=== PATIENT | male | born 1960 | race Caucasian/White ===

== ENCOUNTER 2022-06-22 13:30 | Emergency (ER) | payer MEDICAID ==
[2022-06-22] MEDS ORDERED: Sodium Chloride 0.9% 10 ML Syringe FLUSH PRN (13:43)
[2022-06-22] MEDS ORDERED: Sodium Chloride 0.9% 1,000 ML IV SCH (14:00)
[2022-06-22] MEDS ORDERED: Piperacillin/Tazobactam 4.5 GM in Sodium Chloride 0.9% 100 ML IV ONE (14:57)
[2022-06-22 15:08] LABS: ESTIMATED GFR 11 mL/min (>60)
== END 2022-06-22 15:50 ==
LOC: LB.ED 13:30
DX: I95.0 Idiopathic hypotension (principal); N17.9 Acute kidney failure, unspecified; R57.9 Shock, unspecified; Z79.899 Other long term (current) drug therapy; Z20.822 Contact with and (suspected) exposure to COVID-19
CPT/HCPCS: 36415; 71045; 80053; 83605; 84484; 85025; 87040; 93005; 96361; 96365; 99284; 99285-25; A0425; A0429; J2543; J3490; J7030; U0002

== ENCOUNTER 2023-05-12 09:40 | Emergency (ER) | payer MEDICAID ==
[2023-05-12] MEDS ORDERED: Sodium Chloride 3% 500 ML IV SCH (10:15)
[2023-05-12 11:47] LABS: BASOPHILS ABSOLUTE AUTO 0.04 K/uL (0.02-0.10); BASOPHILS PERCENT AUTO 1.2 % (0.0-0.5); EOSINOPHILS ABSOLUTE AUTO 0.04 K/uL (0.04-0.40); EOSINOPHILS PERCENT AUTO 1.2 % (1.0-5.0); HEMATOCRIT 37.7 % (40.0-54.0); HEMOGLOBIN 14.2 g/dL (13.0-18.0); LYMPHOCYTES ABSOLUTE AUTO 0.62 K/uL (1.50-4.00); LYMPHOCYTES PERCENT AUTO 18.2 % (20.0-40.0); MEAN CORPUSCULAR HEMOGLOBIN 35.9 pg (27.0-32.0); MEAN CORPUSCULAR HGB CONC 37.7 g/dL (31.0-35.0); MEAN CORPUSCULAR VOLUME 95 fL (76-96); MEAN PLATELET VOLUME 9.3 fL (6.0-10.0); MONOCYTES ABSOLUTE AUTO 0.39 K/uL (0.20-0.80); MONOCYTES PERCENT AUTO 11.5 % (3.0-10.0); NEUTROPHILS ABSOLUTE AUTO 2.31 K/uL (2.00-7.50); NEUTROPHILS PERCENT AUTO 67.9 % (45.0-70.0); PLATELET COUNT,PLT 192 K/uL (150-400); RED BLOOD CELL COUNT 3.95 M/uL (4.50-6.50); RED CELL DISTRIBUTION WIDTH 11.2 % (11.0-16.0); WHITE BLOOD CELL COUNT,WBC 3.4 K/uL (4.0-11.0)
[2023-05-12 12:17] LABS: ANION GAP 10.4 mmol/L (5.0-15.0); BUN/CREATININE RATIO 8.7 (6-25); CALCIUM 8.5 mg/dL (8.5-10.1); CARBON DIOXIDE,CO2 30.8 mmol/L (21.0-32.0); CREATININE 1.03 mg/dL (0.70-1.30); EST CRCL DRUG DOSING (CG) 57.25 mL/min; POTASSIUM,K 5.2 mmol/L (3.5-5.1)
[2023-05-12 13:56] LABS: ANION GAP 9.2 mmol/L (5.0-15.0); BUN/CREATININE RATIO 7.2 (6-25); CALCIUM 8.6 mg/dL (8.5-10.1); CARBON DIOXIDE,CO2 31.7 mmol/L (21.0-32.0); CREATININE 1.11 mg/dL (0.70-1.30); EST CRCL DRUG DOSING (CG) 53.12 mL/min; POTASSIUM,K 4.9 mmol/L (3.5-5.1)
== END 2023-05-12 13:36 | disposition home or self-care (01) ==
LOC: LB.ED 09:40
DX: E87.1 Hypo-osmolality and hyponatremia (principal); E87.8 Other disorders of electrolyte and fluid balance, not elsewhere classified; J44.9 Chronic obstructive pulmonary disease, unspecified; Z79.899 Other long term (current) drug therapy
CPT/HCPCS: 36415; 80048; 85025; 96360; 96361; 99283; J7131

== ENCOUNTER 2023-12-29 02:30 | Inpatient (IN) | payer MEDICAID ==
[2023-12-29 11:18] LABS: A/G RATIO 1.1 (0.8-2.0); ALANINE AMINOTRANSFERASE,ALT 13 U/L (12-78); ALBUMIN 3.1 g/dL (3.4-5.0); ALKALINE PHOSPHATASE 63 U/L (46-116); ANION GAP 13.5 mmol/L (5.0-15.0); ASPARTATE AMNIOTRANSFERASE,AST 17 U/L (15-37); BILIRUBIN TOTAL 0.8 mg/dL (0.0-1.0); BLOOD UREA NITROGEN,BUN 19 mg/dL (8-26); CALCIUM 8.6 mg/dL (8.5-10.1); CHLORIDE,CL 93 mmol/L (98-107); CREATININE 1.27 mg/dL (0.70-1.30); ESTIMATED GFR 63 mL/min (>60); GLUCOSE RANDOM 118 mg/dL (74-100); POTASSIUM,K 4.5 mmol/L (3.5-5.1); PROTEIN TOTAL,TP 5.9 g/dL (6.4-8.2); SODIUM,NA 129 mmol/L (136-145)
[2023-12-29 11:23] LABS: LACTIC ACID 1.5 mmol/L (0.4-2.0)
[2023-12-29] MEDS ORDERED: Benzocaine/Butamben/Tetracaine Top Spray 56 GM Canister TOP SCH (11:25)
[2023-12-29 11:26] LABS: MEAN CORPUSCULAR HEMOGLOBIN 40.3 pg (27.0-32.0); MEAN CORPUSCULAR HGB CONC 34.9 g/dL (31.0-35.0); MEAN CORPUSCULAR VOLUME 116 fL (76-96); RED BLOOD CELL COUNT 3.72 M/uL (4.50-6.50); RED CELL DISTRIBUTION WIDTH 12.4 % (11.0-16.0); WHITE BLOOD CELL COUNT,WBC 7.3 K/uL (4.0-11.0)
[2023-12-29 11:27] LABS: LYMPHOCYTES PERCENT AUTO 3.6 % (20.0-40.0); MEAN PLATELET VOLUME 9.9 fL (6.0-10.0); MONOCYTES PERCENT AUTO 3.1 % (3.0-10.0); PLATELET COUNT,PLT 273 K/uL (150-400)
[2023-12-29 11:28] LABS: BASOPHILS ABSOLUTE AUTO 0.02 K/uL (0.02-0.10); BASOPHILS PERCENT AUTO 0.3 % (0.0-0.5); LYMPHOCYTES ABSOLUTE AUTO 0.26 K/uL (1.50-4.00); MONOCYTES ABSOLUTE AUTO 0.23 K/uL (0.20-0.80)
[2023-12-29 11:29] LABS: POTASSIUM,K 4.7 mmol/L (3.5-5.1); SODIUM,NA 127 mmol/L (136-145)
[2023-12-29 11:30] LABS: BLOOD UREA NITROGEN,BUN 15 mg/dL (8-26); BUN/CREATININE RATIO 11.6 (6-25); CARBON DIOXIDE,CO2 25.7 mmol/L (21.0-32.0); CHLORIDE,CL 86 mmol/L (98-107); CREATININE 1.29 mg/dL (0.70-1.30); ESTIMATED GFR 62 mL/min (>60); GLUCOSE RANDOM 198 mg/dL (74-100)
[2023-12-29 11:31] LABS: A/G RATIO 1.2 (0.8-2.0); ALBUMIN 4.1 g/dL (3.4-5.0); BILIRUBIN TOTAL 1.1 mg/dL (0.0-1.0); CALCIUM 9.8 mg/dL (8.5-10.1); MAGNESIUM 1.8 mg/dL (1.8-2.4); PHOSPHORUS 4.8 mg/dL (2.5-4.9); PROTEIN TOTAL,TP 7.6 g/dL (6.4-8.2)
[2023-12-29 11:32] LABS: ALANINE AMINOTRANSFERASE,ALT 20 U/L (12-78); ALKALINE PHOSPHATASE 83 U/L (46-116); ASPARTATE AMNIOTRANSFERASE,AST 22 U/L (15-37); LIPASE 30 U/L (16-77)
[2023-12-29 11:59] LABS: HEMATOCRIT 37.8 % (40.0-54.0); HEMOGLOBIN 13.2 g/dL (13.0-18.0); MEAN CORPUSCULAR HEMOGLOBIN 40.7 pg (27.0-32.0); MEAN CORPUSCULAR HGB CONC 34.9 g/dL (31.0-35.0); RED BLOOD CELL COUNT 3.24 M/uL (4.50-6.50); RED CELL DISTRIBUTION WIDTH 12.2 % (11.0-16.0); WHITE BLOOD CELL COUNT,WBC 6.5 K/uL (4.0-11.0)
[2023-12-29] MEDS ORDERED: NS + KCl 20mEq/L 1,000 ML IV SCH (13:15)
[2023-12-29] MEDS: Albuterol/Ipratropium 3.0-0.5 MG/3 ML Neb Soln NEB SCH (15:09)
[2023-12-29] MEDS ORDERED: Ondansetron 4 MG/2 ML SDV IV PRN (15:56)
[2023-12-29 16:55] LABS: INFLUENZA A NAA NEGATIVE (NEGATIVE); INFLUENZA B NAA NEGATIVE (NEGATIVE); RESPIRATORY SYNCYTIAL VIR NAA NEGATIVE (NEGATIVE)
[2023-12-29 16:57] LABS: CORONAVIRUS COVID-19 NAA NEGATIVE (NEGATIVE)
[2023-12-29] MEDS: Albuterol/Ipratropium 3.0-0.5 MG/3 ML Neb Soln ONE (19:50)
[2023-12-29] MEDS: Albuterol 0.083% 2.5 MG/3 ML Neb Soln NEB SCH (19:50)
[2023-12-29] MEDS: Ketorolac 30 MG/ML SDV ONE (19:50)
[2023-12-29] MEDS: Prochlorperazine 10 MG/2 ML SDV ONE (19:50)
[2023-12-29] MEDS: Benzocaine 20% Oral Spray 59.2 ML Canister MUCMEM ONE (19:51)
[2023-12-29] MEDS ORDERED: [UNRECOGNIZED DRUG - OTHER] PO SCH (20:00)
[2023-12-29] MEDS: HYDROmorphone 2 MG/ML Syringe IV PRN (20:02)
[2023-12-29] MEDS: Lactated Ringers 1,000 ML IV SCH (23:33)
[2023-12-30] MEDS: Albuterol/Ipratropium 3.0-0.5 MG/3 ML Neb Soln ONE (05:56)
[2023-12-30 08:49] LABS: HEMATOCRIT 36.5 % (40.0-54.0); MEAN CORPUSCULAR HEMOGLOBIN 39.7 pg (27.0-32.0); MEAN CORPUSCULAR HGB CONC 32.9 g/dL (31.0-35.0); MEAN PLATELET VOLUME 9.5 fL (6.0-10.0); RED BLOOD CELL COUNT 3.02 M/uL (4.50-6.50); RED CELL DISTRIBUTION WIDTH 12.6 % (11.0-16.0); WHITE BLOOD CELL COUNT,WBC 5.1 K/uL (4.0-11.0)
[2023-12-30 08:51] LABS: ALBUMIN 2.9 g/dL (3.4-5.0); ANION GAP 12.4 mmol/L (5.0-15.0); BILIRUBIN TOTAL 0.8 mg/dL (0.0-1.0); BUN/CREATININE RATIO 16.1 (6-25); CALCIUM 8.6 mg/dL (8.5-10.1); CARBON DIOXIDE,CO2 27.1 mmol/L (21.0-32.0); CREATININE 1.12 mg/dL (0.70-1.30); EST CRCL DRUG DOSING (CG) 49.94 mL/min; POTASSIUM,K 4.5 mmol/L (3.5-5.1); PROTEIN TOTAL,TP 5.8 g/dL (6.4-8.2)
[2023-12-30] MEDS: Labetalol 100 MG/20 ML MDV IVPUSH ONE ×2 (10:08→16:21)
[2023-12-30] MEDS ORDERED: Albuterol 0.083% 2.5 MG/3 ML Neb Soln NEB PRN (10:34)
[2023-12-30] MEDS ORDERED: Albuterol/Ipratropium 3.0-0.5 MG/3 ML Neb Soln NEB PRN (10:35)
[2023-12-30] MEDS ORDERED: Non-Formulary Medication 1 Each (Lisinopril/Hydrochlorothiazide [Lisinopril-Hctz 20-12.5 M PO SCH (10:45)
[2023-12-30] MEDS: Hydrochlorothiazide 12.5 MG Cap PO SCH (11:19)
[2023-12-30] MEDS: Lisinopril 20 MG Tab PO SCH (11:19)
[2023-12-30] MEDS: Pantoprazole 40 MG Vial IVPUSH SCH (11:21)
[2023-12-30] MEDS: HYDROmorphone 2 MG/ML Syringe IV PRN (12:40)
[2023-12-30] MEDS: Bisacodyl 10 MG Supp RECTAL SCH (13:16)
[2023-12-30] MEDS: Sodium Chloride 0.9% 50 ML SDV FLUSH ONE (17:43)
[2023-12-30] MEDS: Iopamidol 612 MG/ML 100 ML Bottle IV SCH (17:43)
[2024-01-04] MEDS ORDERED: [UNRECOGNIZED DRUG - OTHER] PO SCH (08:00)
== END 2023-12-30 19:59 | DRG 389 ==
LOC: LB.ED 02:30 → LB.MS 15:56 → OBSVTOIN 15:56
PROVIDERS: ADMIT Surgery; ATTEND Surgery
PROC: 0D9670Z Drainage of Stomach with Drainage Device, Via Natural or Artificial Opening (ICD-10-PCS; principal; 2023-12-29)
DX: K56.609 Unspecified intestinal obstruction, unspecified as to partial versus complete obstruction (principal); E87.1 Hypo-osmolality and hyponatremia; R18.8 Other ascites; K21.9 Gastro-esophageal reflux disease without esophagitis; J44.9 Chronic obstructive pulmonary disease, unspecified; I10 Essential (primary) hypertension; F32.A Depression, unspecified; E87.8 Other disorders of electrolyte and fluid balance, not elsewhere classified; Z85.118 Personal history of other malignant neoplasm of bronchus and lung; Z90.89 Acquired absence of other organs; Z98.890 Other specified postprocedural states; Z85.038 Personal history of other malignant neoplasm of large intestine; Z79.51 Long term (current) use of inhaled steroids; Z79.899 Other long term (current) drug therapy
CPT/HCPCS: 0241U; 36415; 43752; 74018; 74177; 80053; 83605; 83690; 83735; 84100; 85025; 85027; 87040; 99223; 99239; 99285-25; A0425; A0429; A9270-GY; C9113; J1170; J3490; J7120; J7620; Q9967

== ENCOUNTER 2024-12-11 15:04 | Emergency (ER) | payer MEDICAID ==
[2024-12-11] MEDS: Ondansetron 4 MG/2 ML SDV IVPUSH ONE ×2 (16:00→23:20)
[2024-12-11] MEDS: HYDROmorphone 1 MG/ML Syringe IVPUSH ONE ×2 (16:00→16:25)
[2024-12-11 16:19] LABS: BASOPHILS ABSOLUTE AUTO 0.02 K/uL (0.02-0.10); BASOPHILS PERCENT AUTO 0.2 % (0.0-0.5); EOSINOPHILS ABSOLUTE AUTO 0.02 K/uL (0.04-0.40); EOSINOPHILS PERCENT AUTO 0.2 % (1.0-5.0); LYMPHOCYTES ABSOLUTE AUTO 0.69 K/uL (1.50-4.00); LYMPHOCYTES PERCENT AUTO 7.6 % (20.0-40.0); MEAN CORPUSCULAR HEMOGLOBIN 35.3 pg (27.0-32.0); MEAN CORPUSCULAR HGB CONC 34.2 g/dL (31.0-35.0); MEAN CORPUSCULAR VOLUME 103 fL (76-96); MEAN PLATELET VOLUME 9.8 fL (6.0-10.0); MONOCYTES ABSOLUTE AUTO 0.38 K/uL (0.20-0.80); MONOCYTES PERCENT AUTO 4.2 % (3.0-10.0); NEUTROPHILS ABSOLUTE AUTO 7.99 K/uL (2.00-7.50); NEUTROPHILS PERCENT AUTO 87.8 % (45.0-70.0); PLATELET COUNT,PLT 180 K/uL (150-400); RED BLOOD CELL COUNT 3.68 M/uL (4.50-6.50); RED CELL DISTRIBUTION WIDTH 14.4 % (11.0-16.0); WHITE BLOOD CELL COUNT,WBC 9.1 K/uL (4.0-11.0)
[2024-12-11] MEDS: Sodium Chloride 0.9% 1,000 ML IV ONE (16:32)
[2024-12-11 16:40] LABS: C-REACTIVE PROTEIN 64.2 mg/L (<5.0)
[2024-12-11 16:43] LABS: A/G RATIO 0.8 (0.8-2.0); ALANINE AMINOTRANSFERASE,ALT 39 U/L (12-78); ALBUMIN 2.7 g/dL (3.4-5.0); ALKALINE PHOSPHATASE 166 U/L (46-116); ANION GAP 13.6 mmol/L (5.0-15.0); ASPARTATE AMNIOTRANSFERASE,AST 29 U/L (15-37); BILIRUBIN TOTAL 0.8 mg/dL (0.0-1.0); BLOOD UREA NITROGEN,BUN 13 mg/dL (8-26); BUN/CREATININE RATIO 16.3 (6-25); CALCIUM 8.5 mg/dL (8.5-10.1); CARBON DIOXIDE,CO2 27.4 mmol/L (21.0-32.0); CHLORIDE,CL 101 mmol/L (98-107); ESTIMATED GFR 99 mL/min (>60); GLUCOSE RANDOM 142 mg/dL (74-100); PROTEIN TOTAL,TP 6.3 g/dL (6.4-8.2); SODIUM,NA 138 mmol/L (136-145)
[2024-12-11] MEDS: Ketorolac 30 MG/ML SDV IVPUSH ONE (17:18)
[2024-12-11] MEDS ORDERED: Naloxone 2 MG/2 ML Syringe IVPUSH PRN (17:28)
[2024-12-11] MEDS: fentaNYL 100 MCG/2 ML SDV IV ONE (17:32)
[2024-12-11] MEDS: fentaNYL 100 MCG/2 ML SDV IVPUSH PRN (17:47)
[2024-12-11] MEDS: Midazolam 1 MG/ML 2 ML SDV IVPUSH ONE ×2 (18:21→19:04)
[2024-12-11] MEDS: diazePAM 5 MG/ML MDV IV ONE ×2 (19:34→21:01)
[2024-12-11] MEDS: Piperacillin/Tazobactam 3.375 GM in Sodium Chloride 0.9% 100 ML IV SCH (19:42)
[2024-12-11] MEDS: Piperacillin/Tazobactam 3.375 GM in Sodium Chloride 0.9% 100 ML IV ONE (20:56)
[2024-12-11] MEDS: Benzocaine 20% Oral Spray 59.2 ML Canister MUCMEM ONE (21:03)
[2024-12-11] MEDS: Sodium Chloride 0.9% 1,000 ML IV SCH (23:06)
[2024-12-11] MEDS: Albuterol/Ipratropium 3.0-0.5 MG/3 ML Neb Soln NEB ONE (23:10)
[2024-12-11] MEDS: Albuterol/Ipratropium 3.0-0.5 MG/3 ML Neb Soln ONE (23:25)
[2024-12-11] MEDS: Ondansetron 4 MG/2 ML SDV ONE (23:25)
[2024-12-11 23:50] LABS: HEMATOCRIT 30.4 % (40.0-54.0); HEMOGLOBIN 10.1 g/dL (13.0-18.0); MEAN CORPUSCULAR HEMOGLOBIN 35.4 pg (27.0-32.0); MEAN CORPUSCULAR HGB CONC 33.2 g/dL (31.0-35.0); MEAN CORPUSCULAR VOLUME 107 fL (76-96); MEAN PLATELET VOLUME 9.5 fL (6.0-10.0); PLATELET COUNT,PLT 145 K/uL (150-400); RED BLOOD CELL COUNT 2.85 M/uL (4.50-6.50); RED CELL DISTRIBUTION WIDTH 14.1 % (11.0-16.0); WHITE BLOOD CELL COUNT,WBC 5.2 K/uL (4.0-11.0)
[2024-12-12 00:07] LABS: ALBUMIN 2.1 g/dL (3.4-5.0); ANION GAP 17.1 mmol/L (5.0-15.0); BILIRUBIN TOTAL 1.1 mg/dL (0.0-1.0); BUN/CREATININE RATIO 14.2 (6-25); CALCIUM 7.5 mg/dL (8.5-10.1); CARBON DIOXIDE,CO2 22.9 mmol/L (21.0-32.0); CREATININE 1.34 mg/dL (0.70-1.30); EST CRCL DRUG DOSING (CG) 41.09 mL/min; PROTEIN TOTAL,TP 4.9 g/dL (6.4-8.2)
[2024-12-12 00:09] LABS: ELLIPTOCYTES OCCASIONAL
[2024-12-12 00:10] LABS: GIANT PLATELETS OCCASIONAL; PLATELET COUNT ESTIMATE DECREASED
[2024-12-12 00:11] LABS: A/G RATIO 0.8 (0.8-2.0)
[2024-12-12] MEDS: Piperacillin/Tazobactam 3.375 GM in Sodium Chloride 0.9% 100 ML IV SCH ×2 (00:56→01:29)
[2024-12-12] MEDS: Albuterol/Ipratropium 3.0-0.5 MG/3 ML Neb Soln NEB ONE (04:07)
[2024-12-12] MEDS: fentaNYL 100 MCG/2 ML SDV IVPUSH ONE (04:07)
== END 2024-12-12 05:25 | disposition expired ==
LOC: LB.ED 15:04
DX: A41.9 Sepsis, unspecified organism (principal); K56.609 Unspecified intestinal obstruction, unspecified as to partial versus complete obstruction; I10 Essential (primary) hypertension; J44.9 Chronic obstructive pulmonary disease, unspecified; F17.210 Nicotine dependence, cigarettes, uncomplicated
CPT/HCPCS: 36415; 43752-52; 71045; 74176; 80053; 83605; 83690; 85025; 86140; 94640; 96361; 96365; 96366; 96375; 96376; 99285; 99285-25; J1171; J1885; J2250; J2405; J2543; J3010; J3360; J3490; J7030; J7620